=== PATIENT | female | born 1955 | race African-American/Black ===

== ENCOUNTER 2023-10-24 17:30 | Inpatient (IN) | payer BC, OTHER ==
[~2023-10-24] VITALS: Ht 160 cm; Wt 90.9 kg
[2023-10-24 18:30] LABS: Basophils # (auto) 0.1 10 ^3/uL (0-0.2); Eosinophils # (auto) 0.1 10 ^3/uL (0-0.8); Eosinophils % (auto) 0.6 % (0.0-7.0); Hemoglobin 14.9 g/dL (12.2-16.2); Lymphocytes # (auto) 2.6 10 ^3/uL (0.4-5.4); Lymphocytes % (auto) 18.2 % (10.0-50.0)
[2023-10-24 18:33] LABS: Basophils % (auto) 0.5 % (0.0-2.0); Hematocrit 45.9 % (36.0-46.0); Mean Corpuscular Hemoglobin 27.7 pg (28.0-32.0); Mean Corpuscular Hgb Conc. 32.6 g/dL (32.0-36.0); Monocytes # (auto) 1.4 10 ^3/uL (0-1.3); Monocytes % (auto) 9.4 % (0.0-12.0); Neutrophils # (auto) 10.4 10 ^3/uL (1.6-8.6); Neutrophils % (auto) 71.3 % (37.0-80.0); Nucleated Red Blood Cells % 0.2 %; Red Cell Distribution Width 13.6 % (11.8-14.3); White Blood Cell 14.5 10^3/uL (4.4-10.8)
[2023-10-24 18:37] LABS: Alanine Aminotransferase 11 U/L (7-40); Albumin 4.2 g/dL (3.2-4.8); Alkaline Phosphatase 92 U/L (46-116); Anion Gap 9 (5-15); Aspartate Aminotransferase 19 U/L (13-40); BUN/Creatinine Ratio 11.5 (10.0-20.0); Bilirubin, Total 0.5 mg/dL (0.2-1.0); Blood Urea Nitrogen 13 mg/dL (9-23); Calcium 9.5 mg/dL (8.7-10.4); Carbon Dioxide 22 mmol/L (20-30); Chloride 112 mmol/L (98-107); Glucose 119 mg/dL (74-106); Lipase 33 U/L (12-53); Potassium 4.1 mmol/L (3.5-5.1); Sodium 143 mmol/L (136-145); Total Protein 7.1 g/dL (5.7-8.2)
[2023-10-24] MEDS: ONDANSETRON HCL 4 MG/2 ML VIAL IV ONE (21:03)
[2023-10-24] MEDS ORDERED: ONDANSETRON HCL 4 MG/2 ML VIAL IV PRN (22:00)
[2023-10-24] MEDS ORDERED: NITROGLYCERIN 0.4 MG SL TAB SL PRN (22:00)
[2023-10-24] MEDS ORDERED: MORPHINE SULFATE INJ 2 MG/ml SYRG IV PRN (22:00)
[2023-10-24] MEDS ORDERED: DOCUSATE SOD 100 MG CAP PO PRN (22:00)
[2023-10-24 22:31] LABS: Urine Amorphous Crystal FEW /hpf (None Seen); Urine Bacteria FEW /hpf (None Seen); Urine Blood Negative /uL (Negative); Urine Clarity HAZY (Clear); Urine Color Yellow (Yellow); Urine Mucus FEW (None Seen); Urine Protein, UAD 1+ (Negative); Urine Specific Gravity 1.034 (1.001-1.035); Urine WBC 1 /hpf (0 - 5)
[2023-10-24 22:58] LABS: INR 1.04 (0.9-1.15); Partial Thromboplastin Time 30.2 SEC (24.5-34.5); Prothrombin Time 10.9 sec (9.3-11.8)
[2023-10-24] MEDS: PIPERACILLIN-TAZOB 3.375GM 100 ML IV SCH (23:22)
[2023-10-24] MEDS: HYDROcodone-ACET 5/325MG TAB PO PRN (23:30)
[2023-10-25] MEDS ORDERED: hydrALAZINE HCL 20 MG/ML VL IV PRN (00:15)
[2023-10-25 06:31] LABS: Chloride 113 mmol/L (98-107); Potassium 4.4 mmol/L (3.5-5.1); Sodium 144 mmol/L (136-145)
[2023-10-25 06:32] LABS: Anion Gap 7 (5-15); Carbon Dioxide 24 mmol/L (20-30)
[2023-10-25 06:33] LABS: Calcium 9.3 mg/dL (8.5-10.1)
[2023-10-25 06:37] LABS: Glucose 99 mg/dL (74-106)
[2023-10-25 06:38] LABS: BUN/Creatinine Ratio 9.6 (10.0-20.0); Blood Urea Nitrogen 12 mg/dL (9-23)
[2023-10-25 06:43] LABS: Basophils # (auto) 0.1 10 ^3/uL (0-0.2); Eosinophils # (auto) 0.1 10 ^3/uL (0-0.8); Red Cell Distribution Width 13.9 % (11.8-14.3)
[2023-10-25 06:46] LABS: Basophils % (auto) 0.5 % (0.0-2.0); Eosinophils % (auto) 0.8 % (0.0-7.0); Hematocrit 45.9 % (36.0-46.0); Hemoglobin 14.6 g/dL (12.2-16.2); Lymphocytes # (auto) 2.2 10 ^3/uL (0.4-5.4); Lymphocytes % (auto) 16.3 % (10.0-50.0); Mean Corpuscular Hemoglobin 27.3 pg (28.0-32.0); Mean Corpuscular Hgb Conc. 31.8 g/dL (32.0-36.0); Mean Corpuscular Volume 85.8 fL (80.0-100.0); Monocytes # (auto) 1.5 10 ^3/uL (0-1.3); Monocytes % (auto) 11.5 % (0.0-12.0); Neutrophils # (auto) 9.4 10 ^3/uL (1.6-8.6); Neutrophils % (auto) 70.9 % (37.0-80.0); Nucleated Red Blood Cells % 0.1 %; Red Blood Cells 5.35 10^6/uL (4.0-5.20); White Blood Cell 13.3 10^3/uL (4.4-10.8)
[2023-10-25] MEDS: ENOXAPARIN SOD 40 MG/0.4 ML SYRINGE SC SCH (10:00)
[2023-10-25 10:08] VITALS: PULSE 101; RESP 19; O2SAT 94
[2023-10-25] MEDS: ALBUMIN 25% 50 ML IV ONE (11:10)
[2023-10-25 13:19] LABS: Body Fluid pH 8
[2023-10-25 14:58] LABS: Body Fluid Polymorphonuclear 20 % (0-25); Body Fluid Red Blood Cells 305 CUMM (0-2000); Body Fluid White Blood Cells 365 CUMM (0-200)
[2023-10-25 16:20] VITALS: O2SAT 96
[2023-10-25 20:00] VITALS: PULSE 108; PULSE 110; RESP 17; O2SAT 96
[2023-10-25] MEDS: ALBUMIN 25% 100 ML IV SCH (21:49)
[2023-10-25 22:00] VITALS: BP 137/88; PULSE 108; RESP 17; TEMP 97.4; O2SAT 96
[2023-10-26] MEDS: ACETAMINOPHEN 325 MG TAB PO PRN (04:16)
[2023-10-26 05:00] VITALS: BP 136/84; PULSE 98; RESP 18; TEMP 98; O2SAT 96
[2023-10-26 05:09] LABS: Lymphocytes % (auto) 15.2 % (10.0-50.0); Neutrophils # (auto) 9.6 10 ^3/uL (1.6-8.6); White Blood Cell 13.2 10^3/uL (4.4-10.8)
[2023-10-26 05:11] LABS: Basophils # (auto) 0.1 10 ^3/uL (0-0.2); Basophils % (auto) 0.5 % (0.0-2.0); Eosinophils # (auto) 0.2 10 ^3/uL (0-0.8); Eosinophils % (auto) 1.2 % (0.0-7.0); Hematocrit 43.7 % (36.0-46.0); Hemoglobin 13.9 g/dL (12.2-16.2); Mean Corpuscular Hemoglobin 27.2 pg (28.0-32.0); Mean Corpuscular Hgb Conc. 31.9 g/dL (32.0-36.0); Monocytes # (auto) 1.3 10 ^3/uL (0-1.3); Monocytes % (auto) 9.9 % (0.0-12.0); Neutrophils % (auto) 73.2 % (37.0-80.0); Red Blood Cells 5.13 10^6/uL (4.0-5.20); Red Cell Distribution Width 13.7 % (11.8-14.3)
[2023-10-26 05:16] LABS: Anion Gap 10 (5-15); Carbon Dioxide 23 mmol/L (20-30); Chloride 112 mmol/L (98-107); Potassium 4.3 mmol/L (3.5-5.1); Sodium 145 mmol/L (136-145)
[2023-10-26 05:22] LABS: BUN/Creatinine Ratio 8.2 (10.0-20.0); Blood Urea Nitrogen 10 mg/dL (9-23); Glucose 117 mg/dL (74-106)
[2023-10-26 08:10] VITALS: BP 130/88; PULSE 100; RESP 18; TEMP 97.8; O2SAT 96
[2023-10-26 08:29] VITALS: BP 130/88; PULSE 100; RESP 18; TEMP 97.8
[2023-10-26 12:10] VITALS: BP 147/79; PULSE 96; RESP 18; TEMP 97.8; O2SAT 95
[2023-10-26 13:06] LABS: Protein, Body Fluid 4.6 g/dL (.)
[2023-10-26 15:45] VITALS: BP 147/79; PULSE 96; RESP 18; TEMP 97.8; O2SAT 95
== END 2023-10-26 16:40 | disposition home or self-care (01) | DRG 432 ==
LOC: ER 17:30 → TELE 22:05 → TELE-WESTW 10-25 16:10
PROVIDERS: ADMIT Nurse Practitioner Family; ATTEND Internal Medicine
PROC: 0W9G3ZZ Drainage of Peritoneal Cavity, Percutaneous Approach (ICD-10-PCS; principal; 2023-10-25)
DX: K74.60 Unspecified cirrhosis of liver (principal); N17.0 Acute kidney failure with tubular necrosis; R18.8 Other ascites; I10 Essential (primary) hypertension; E66.01 Morbid (severe) obesity due to excess calories; D72.829 Elevated white blood cell count, unspecified; Z85.89 Personal history of malignant neoplasm of other organs and systems; Z90.710 Acquired absence of both cervix and uterus; Z68.35 Body mass index [BMI] 35.0-35.9, adult
CPT/HCPCS: 36415; 74176; 76700; 76942; 80048; 80053; 81001; 82105; 83690; 83986; 85025; 85610; 85730; 86301; 87040; 87205; 89051; 93005; G0378; J2405; J2543; P9047